=== PATIENT | female | born 1940 | race Caucasian/White ===

== ENCOUNTER 2021-12-27 13:25 | Observation (INO) | payer OTHER ==
[2021-12-27] MEDS ORDERED: LACTATED RINGERS SOLUTION 1000 ML INFUS.BAG IV ONE (13:34)
[2021-12-27 14:02] VITALS: BMI 32.5
[2021-12-27 14:04] LABS: HEMATOCRIT 39.3 % (32.4-45.2); HEMOGLOBIN 13.4 G/dL (10.7-15.3); MCHC 34.2 g/dl (32.0-36.0); MEAN CELL VOLUME 90.8 fl (80-96); MEAN PLT VOLUME 9.9 fl (7.5-11.1); PLATELET COUNT 217.1 10^3/uL (134-434); RBC 4.33 10^6/uL (3.60-5.2); RDW 14.3 % (11.6-15.6); WHITE BLOOD COUNT 8.1 10^3/uL (4.0-10.8)
[2021-12-27 14:08] LABS: INR 1.09 (0.83-1.09); PROTHROMBIN TIME (PATIENT) 12.6 SEC (9.7-13.0)
[2021-12-27 14:12] LABS: ALBUMIN 3.9 g/dl (3.4-5.0); BILIRUBIN,TOTAL 1.1 mg/dl (0.2-1); CALCIUM 9.3 mg/dl (8.5-10); CREATININE 0.9 mg/dl (0.55-1.3); TOT PROT 7.2 g/dl (6.4-8.2)
[2021-12-27 15:39] LABS: EPITHELIAL CELLS RARE /hpf
[2021-12-27] MEDS ORDERED: CEFTRIAXONE 1 GM in DEXTROSE 5%-WATER - 100 ML IVPB ONE (16:15)
[2021-12-27] MEDS ORDERED: cefTRIAXone SODIUM 1 GM VIAL ONE (16:18)
[2021-12-27] MEDS ORDERED: ROSUVASTATIN CA 10 MG TABLET PO SCH (22:00)
[2021-12-28] MEDS ORDERED: ACETAMINOPHEN 325 MG TABLET (FP) PO PRN (06:38)
[2021-12-28 07:38] LABS: HEMATOCRIT 35.4 % (32.4-45.2); HEMOGLOBIN 12.1 G/dL (10.7-15.3); MCH 31.3 pg (25.7-33.7); MCHC 34.1 g/dl (32.0-36.0); MEAN CELL VOLUME 91.6 fl (80-96); MEAN PLT VOLUME 9.5 fl (7.5-11.1); PLATELET COUNT 172.4 10^3/uL (134-434); RBC 3.86 10^6/uL (3.60-5.2); RDW 14.1 % (11.6-15.6); WHITE BLOOD COUNT 6.4 10^3/uL (4.0-10.8)
[2021-12-28 07:43] LABS: CALCIUM 9.3 mg/dl (8.5-10); CREATININE 0.8 mg/dl (0.55-1.3)
[2021-12-28] MEDS ORDERED: SODIUM CHLORIDE 50 ML IVPB ONE (09:16)
[2021-12-28] MEDS ORDERED: cefTRIAXone SODIUM 1 GM VIAL ONE (09:16)
[2021-12-28] MEDS: ASPIRIN COATED 81 MG TABLET.EC PO SCH (09:22)
[2021-12-28] MEDS: amLODIPine BESYLATE 5 MG TABLET (FP) PO SCH (09:22)
[2021-12-28] MEDS ORDERED: CEFTRIAXONE 1 GM in SODIUM CHLORIDE 50 ML IVPB SCH (10:00)
[2021-12-28] MEDS ORDERED: amLODIPine BESYLATE 5 MG TABLET (FP) PO SCH (10:00)
[2021-12-28] MEDS ORDERED: NADOLOL 40 MG TABLET (FP) PO SCH (10:00)
[2021-12-28] MEDS: LOSARTAN POTASSIUM 25 MG TABLET PO SCH (11:15)
[2021-12-28] MEDS: ENOXAPARIN NA (PORCINE) 40 MG/0.4 ML DISP.SYRIN SQ SCH (18:33)
[2021-12-28] MEDS ORDERED: ATORVASTATIN CA 20 MG TABLET (FP) PO SCH ×2 (22:00)
[2021-12-29 06:30] VITALS: PULSE 55
[2021-12-29 07:55] VITALS: BP 155/62; TEMP 98.2
[2021-12-29] MEDS: ASPIRIN COATED 81 MG TABLET.EC PO SCH (09:26)
[2021-12-29] MEDS: LOSARTAN POTASSIUM 25 MG TABLET PO SCH (09:26)
[2021-12-29] MEDS: amLODIPine BESYLATE 5 MG TABLET (FP) PO SCH (09:26)
[2021-12-29] MEDS: ENOXAPARIN NA (PORCINE) 40 MG/0.4 ML DISP.SYRIN SQ SCH (11:41)
== END 2021-12-29 13:24 | disposition home or self-care (01) ==
LOC: FER 13:25 → FM/S 16:41 → UNDOADMOB 16:41 → OBSVTOIN 16:41 → INTOOBSV 16:41 → FM/S 16:42
PROVIDERS: ADMIT Internal Medicine; ATTEND Nurse Practitioner Acute Care
PROC: 3E03329 Introduction of Other Anti-infective into Peripheral Vein, Percutaneous Approach (ICD-10-PCS; principal; 2021-12-27)
PROC: 3E0337Z Introduction of Electrolytic and Water Balance Substance into Peripheral Vein, Percutaneous Approach (ICD-10-PCS; 2021-12-27)
DX: I27.20 Pulmonary hypertension, unspecified (principal); E78.5 Hyperlipidemia, unspecified; R00.1 Bradycardia, unspecified; R06.00 Dyspnea, unspecified; G43.909 Migraine, unspecified, not intractable, without status migrainosus; Z90.79 Acquired absence of other genital organ(s); Z68.33 Body mass index [BMI] 33.0-33.9, adult; E66.9 Obesity, unspecified; R55 Syncope and collapse; R53.1 Weakness; N39.0 Urinary tract infection, site not specified; Z20.822 Contact with and (suspected) exposure to COVID-19; Z29.8 Encounter for other specified prophylactic measures; Z91.013 Allergy to seafood
CPT/HCPCS: 0241U-QW; 36415; 70450-TC; 71045-TC-FY; 71275-TC; 80048; 80053; 81003; 81015; 82962; 83880; 84484; 85025; 85027; 85379; 85610; 85730; 86850; 86900; 86901; 87086; 87186; 87807; 93005; 93306-TC; 93880-TC; 94761; 96365; 96367; 97116-GP; 97161-GP; 99285-25; C9803-CS; G0378; Q9967; U0003; U0005